=== PATIENT | female | born 1980 | race Caucasian/White ===

== ENCOUNTER 2017-02-08 16:26 | Emergency (ER) | payer OTHER ==
[~2017-02-08] VITALS: Ht 154.9 cm; Wt 43.3 kg
[~2017-02-08 16:26] MED LIST: ASPIR-TRIN325 M1 PO; CELEBREX200 MG PO; CYMBALTA30 MG PO; DULCOLAX5 MG PO; Ecotrin PO; FIORICET,ESG1 TABLET PO; Flexeril PO; NAPROSYN500 MG PO; NOHOMEMEDS; Pepcid PO; Senokot,Sennagen PO; VALIUM5 MG PO; VENLAFAXINE HCL75 M1 PO; Vicodin,Lortab 5/500 PO; ZOFRAN4 MG PO
[2017-02-08] MEDS ORDERED: ROBITUSSIN AC,T10 ML PO (19:16)
[2017-02-08] MEDS ORDERED: MOTRIN800 MG PO (19:16)
[2017-02-08 19:33] VITALS: BP 121/90
== END 2017-02-08 19:34 | disposition home or self-care (01) ==
LOC: EME 16:26
DX: M79.1 Myalgia (principal); R50.9 Fever, unspecified; R05 Cough; R53.81 Other malaise
CPT/HCPCS: 71020; 99281; 99284

== ENCOUNTER 2017-02-14 13:18 | Inpatient (IN) | payer OTHER ==
[~2017-02-14] VITALS: Ht 154.9 cm; Wt 45.7 kg
[~2017-02-14 13:18] MED LIST changes: +MOTRIN800 MG PO; +ROBITUSSIN AC,T10 ML PO
[2017-02-14 14:13] LABS: HEMATOCRIT 39.2 % (36.0-46.0); MCH 30.2 PG (29.0-34.0); MCHC 33.9 G/DL (30.0-36.0); MCV 89.1 FL (83-99); MEAN PLAT.VOLUME 11.5 uM^3 (9.5-12.4); PLATELET COUNT 413 K/uL (156-360); RBC DIS.WIDTH-CV 12.7 % (11.8-14.6); RBC DIS.WIDTH-SD 41.8 % (39-53); WHITE BLOOD COUNT 22.2 K/uL (4.1-10.2)
[2017-02-14 14:21] LABS: CHLORIDE 106 mEq/L (99-109); POTASSIUM 3.3 mEq/L (3.7-5.4); SODIUM 139 mEq/L (136-147)
[2017-02-14 14:23] LABS: GLUCOSE 124 mg/dL (70-99)
[2017-02-14 14:24] LABS: ANION GAP 13 MEQ/L (2-14)
[2017-02-14 14:25] LABS: TOTAL BILIRUBIN 0.8 mg/dL (0.0-1.0)
[2017-02-14 14:26] LABS: ALKALINE PHOSPHATASE 81 IU/L (3-129)
[2017-02-14 14:27] LABS: GFR ESTIMATE (CALCULATED) > 59 mL/min/
[2017-02-14 14:28] LABS: UREA NITROGEN (BUN) 6 mg/dL (9-23)
[2017-02-14 14:49] LABS: ADD MIUA? YES; BILIRUBIN NEGATIVE; BLOOD SMALL; COLOR YELLOW ((YELLOW)); GLUCOSE (STRIP) NEGATIVE; KETONES NEGATIVE; LEUKOCYTES TRACE; NITRITE NEGATIVE; PROTEIN (STRIP) NEGATIVE; UROBILINOGEN 0.2 MG/DL (0.2-1.0)
[2017-02-14 14:53] LABS: BACTERIA RARE /HPF; EPITHELIAL CELLS RARE /HPF; HYALINE CASTS 0-5 /LPF; MUCUS TRACE /LPF; WHITE BLOOD CELLS 0-5 /HPF (0-5)
[2017-02-14 16:10] VITALS: BP 101/64
[2017-02-14 18:18] LABS: PLAT.SUFFICIENCY ADEQUATE
[2017-02-14 18:20] LABS: AMPHETAMINES QUANT VALUE 0 NG/ML; BARBITUATES QUANT VALUE 0 NG/ML; BENZODIAZEPINES QUANT VALUE 0 NG/ML; BENZODIAZEPINES, URINE SCREEN Negative (200 ng/mL); OPIATES QUANTITATIVE VALUE 0 NG/ML; PHENCYCLIDINE QUANT VALUE 0 NG/ML
[2017-02-14 20:30] LABS: INFLUENZA A VIRAL ANTIGEN NEGATIVE; INFLUENZA B VIRAL ANTIGEN POSITIVE
[2017-02-14 21:28] VITALS: BP 100/62
[2017-02-14 23:37] VITALS: BP 115/68
[2017-02-15 02:39] LABS: CHLORIDE 113 mEq/L (99-109); SODIUM 141 mEq/L (136-147)
[2017-02-15 02:41] LABS: GLUCOSE 105 mg/dL (70-99)
[2017-02-15 02:42] LABS: ANION GAP 7 MEQ/L (2-14)
[2017-02-15 02:44] LABS: GFR ESTIMATE (CALCULATED) > 59 mL/min/
[2017-02-15 02:45] LABS: UREA NITROGEN (BUN) 6 mg/dL (9-23)
[2017-02-15 02:46] LABS: HEMATOCRIT 35.1 % (36.0-46.0); MCH 30.9 PG (29.0-34.0); MCHC 33.6 G/DL (30.0-36.0); MCV 91.9 FL (83-99); MEAN PLAT.VOLUME 11.3 uM^3 (9.5-12.4); PLATELET COUNT 366 K/uL (156-360); RBC DIS.WIDTH-CV 13.1 % (11.8-14.6); RED BLOOD COUNT 3.82 M/uL (3.80-5.20); WHITE BLOOD COUNT 18.7 K/uL (4.1-10.2)
[2017-02-15 02:56] LABS: POTASSIUM 4.4 mEq/L (3.7-5.4)
[2017-02-15 03:43] VITALS: BP 96/52
[2017-02-15 07:30] VITALS: BP 96/68
[2017-02-15 10:36] LABS: INTERNAL CONTROL VALID? YES
[2017-02-15 15:41] VITALS: BP 116/52
[2017-02-16 00:06] VITALS: BP 112/69
[2017-02-16 04:00] VITALS: BP 122/78
[2017-02-16 05:56] LABS: HEMATOCRIT 34.6 % (36.0-46.0); MCH 30.2 PG (29.0-34.0); MCHC 32.9 G/DL (30.0-36.0); MCV 91.8 FL (83-99); MEAN PLAT.VOLUME 11.5 uM^3 (9.5-12.4); PLATELET COUNT 446 K/uL (156-360); RBC DIS.WIDTH-CV 13.2 % (11.8-14.6); RBC DIS.WIDTH-SD 44.7 % (39-53); RED BLOOD COUNT 3.77 M/uL (3.80-5.20); WHITE BLOOD COUNT 18.8 K/uL (4.1-10.2)
[2017-02-16 06:49] LABS: ANION GAP 8 MEQ/L (2-14); CHLORIDE 107 MEQ/L (99-109); GFR ESTIMATE (CALCULATED) > 59 mL/min/; GLUCOSE 151 mg/dL (70-99); MAGNESIUM 1.9 mg/dl (1.3-2.7); SAMPLE HEMOLYSIS CHECK 0; SAMPLE ICTERIC CHECK 0; SAMPLE LIPEMIA CHECK 0; SODIUM 137 MEQ/L (136-147); UREA NITROGEN (BUN) 5 mg/dL (9-23)
[2017-02-16 08:32] VITALS: BP 88/60
[2017-02-16 10:39] VITALS: BP 94/52
[2017-02-16 12:26] VITALS: BP 101/56
[2017-02-16 20:15] VITALS: BP 121/69
[2017-02-17 00:15] VITALS: BP 107/55
[2017-02-17 05:14] VITALS: BP 96/57
[2017-02-17 06:04] LABS: HEMATOCRIT 32.5 % (36.0-46.0); MCH 30.2 PG (29.0-34.0); MCHC 32.6 G/DL (30.0-36.0); MCV 92.6 FL (83-99); MEAN PLAT.VOLUME 11.5 uM^3 (9.5-12.4); PLATELET COUNT 496 K/uL (156-360); RBC DIS.WIDTH-CV 13.3 % (11.8-14.6); RBC DIS.WIDTH-SD 45.4 % (39-53); RED BLOOD COUNT 3.51 M/uL (3.80-5.20); WHITE BLOOD COUNT 23.7 K/uL (4.1-10.2)
[2017-02-17 06:29] LABS: ANION GAP 9 MEQ/L (2-14); CHLORIDE 111 MEQ/L (99-109); GFR ESTIMATE (CALCULATED) > 59 mL/min/; GLUCOSE 117 mg/dL (70-99); POTASSIUM 3.7 MEQ/L (3.7-5.4); SAMPLE HEMOLYSIS CHECK 0; SAMPLE ICTERIC CHECK 0; SAMPLE LIPEMIA CHECK 0; SODIUM 142 MEQ/L (136-147); UREA NITROGEN (BUN) 8 mg/dL (9-23)
[2017-02-17 07:23] VITALS: BP 92/50
[2017-02-17 11:03] VITALS: BP 93/50
[2017-02-17 16:00] VITALS: BP 96/55
[2017-02-17 23:10] VITALS: BP 110/59
[2017-02-18 06:43] LABS: ANION GAP 6 MEQ/L (2-14); CHLORIDE 112 MEQ/L (99-109); GFR ESTIMATE (CALCULATED) > 59 mL/min/; GLUCOSE 103 mg/dL (70-99); POTASSIUM 3.8 MEQ/L (3.7-5.4); SAMPLE HEMOLYSIS CHECK 0; SAMPLE ICTERIC CHECK 0; SAMPLE LIPEMIA CHECK 0; SODIUM 143 MEQ/L (136-147); UREA NITROGEN (BUN) 10 mg/dL (9-23)
[2017-02-18 06:52] LABS: EOSINOPHIL (%) 0.1 % (0-5); IMMATURE GRANULOCYTE (%) 0.8 % (0.0-0.7); IMMATURE GRANULOCYTE COUNT 0.1 K/uL; INSTRUMENT ABS NEUTROPHIL CT 13.2 K/uL; LYMPHOCYTE COUNT 2.5 K/uL (1.0-2.8); MCH 30.5 PG (29.0-34.0); MCHC 32.7 G/DL (30.0-36.0); MCV 93.5 FL (83-99); MEAN PLAT.VOLUME 11.6 uM^3 (9.5-12.4); MONOCYTE (%) 4.4 % (3-12); MONOCYTE COUNT 0.7 K/uL (0-0.8); NEUTROPHIL (%) 79.7 % (45-76); NEUTROPHIL COUNT 13.2 K/uL (1.8-6.4); PLATELET COUNT 458 K/uL (156-360); RBC DIS.WIDTH-CV 13.6 % (11.8-14.6); RBC DIS.WIDTH-SD 46.5 % (39-53); RED BLOOD COUNT 3.21 M/uL (3.80-5.20); WHITE BLOOD COUNT 16.6 K/uL (4.1-10.2)
[2017-02-18 09:52] VITALS: BP 110/64
[2017-02-18 17:15] VITALS: BP 107/67
[2017-02-19 00:01] VITALS: BP 111/68
[2017-02-19 10:24] VITALS: BP 110/68
[2017-02-19] MEDS ORDERED: LEVOFLOXACIN750 MG PO (11:15)
== END 2017-02-19 12:32 | disposition home or self-care (01) | DRG 871 ==
LOC: EME 13:18 → 3EAST 15:03 → 4EAST 15:03 → EDOF 15:03 → 2EAST 16:07 → 3EAST 20:55 → 4EAST 02-16 12:12 → 5EAST 02-17 18:20
PROVIDERS: Hospitalist; Internal Medicine Infectious Disease; Nurse Practitioner Family; Student in an Organized Health Care Education/Training Program
DX: A41.9 Sepsis, unspecified organism (principal); J18.9 Pneumonia, unspecified organism; J10.00 Influenza due to other identified influenza virus with unspecified type of pneumonia; Z68.1 Body mass index [BMI] 19.9 or less, adult; D72.829 Elevated white blood cell count, unspecified; E87.6 Hypokalemia; E86.0 Dehydration; F19.10 Other psychoactive substance abuse, uncomplicated; F32.9 Major depressive disorder, single episode, unspecified; R05 Cough
CPT/HCPCS: 71010; 71020; 71260; 80048; 80048 91; 80053; 80202; 80306 90; 81003; 83605; 83735; 84145 90; 85025; 85027; 86609 90; 87040; 87070; 87205; 87449; 87502; 93005; 94640; 94640 76; 99202; 99281; 99285; J0696; J1644; J1956; J2543; J2920; J3370; J7030; J7050; J7120

== ENCOUNTER 2017-07-21 16:24 | Emergency (ER) | payer OTHER ==
[~2017-07-21] VITALS: Ht 152.4 cm; Wt 47.9 kg
[~2017-07-21 16:24] MED LIST changes: +LEVOFLOXACIN750 MG PO
[2017-07-21 18:27] LABS: BASOPHIL COUNT 0.1 K/uL (0-0.1); EOSINOPHIL (%) 1.7 % (0-5); EOSINOPHIL COUNT 0.2 K/uL (0-0.3); HEMATOCRIT 41.9 % (36.0-46.0); IMMATURE GRANULOCYTE (%) 0.2 % (0.0-0.7); INSTRUMENT ABS NEUTROPHIL CT 6.6 K/uL; MCH 31.1 PG (29.0-34.0); MCHC 32.5 G/DL (30.0-36.0); MCV 95.9 FL (83-99); MEAN PLAT.VOLUME 11.3 uM^3 (9.5-12.4); MONOCYTE (%) 4.8 % (3-12); MONOCYTE COUNT 0.5 K/uL (0-0.8); NEUTROPHIL (%) 71.2 % (45-76); NEUTROPHIL COUNT 6.6 K/uL (1.8-6.4); PLATELET COUNT 311 K/uL (156-360); RBC DIS.WIDTH-CV 12.9 % (11.8-14.6); RBC DIS.WIDTH-SD 45.9 % (39-53); RED BLOOD COUNT 4.37 M/uL (3.80-5.20); WHITE BLOOD COUNT 9.3 K/uL (4.1-10.2)
[2017-07-21 19:00] LABS: CHLORIDE 107 mEq/L (99-109); POTASSIUM 4.5 mEq/L (3.7-5.4); SODIUM 138 mEq/L (136-147)
[2017-07-21 19:03] LABS: GLUCOSE 117 mg/dL (70-99)
[2017-07-21 19:04] LABS: ANION GAP 7 MEQ/L (2-14); TOTAL BILIRUBIN 0.2 mg/dL (0.0-1.0)
[2017-07-21 19:06] LABS: ALKALINE PHOSPHATASE 86 IU/L (3-129); GFR ESTIMATE (CALCULATED) > 59 mL/min/; SERUM ETHYL ALCOHOL < 10 mg/dL
[2017-07-21 19:07] LABS: UREA NITROGEN (BUN) 6 mg/dL (9-23)
[2017-07-21 19:18] LABS: QUANTITATIVE HCG < 4.0 MIU/ML
[2017-07-22 02:07] VITALS: BP 116/78
== END 2017-07-21 19:37 | disposition home or self-care (01) ==
LOC: EME 16:24
PROVIDERS: Emergency Medicine
DX: F33.1 Major depressive disorder, recurrent, moderate (principal); F15.20 Other stimulant dependence, uncomplicated; Z98.1 Arthrodesis status
CPT/HCPCS: 80053; 81003; 84702; 85025; 90839; 99281; 99283; G0480

== ENCOUNTER 2018-03-03 18:34 | Emergency (ER) | payer OTHER ==
[~2018-03-03] VITALS: Ht 154.9 cm; Wt 51.9 kg
[2018-03-03 19:25] LABS: HEMATOCRIT 40.4 % (36.0-46.0); HEMOGLOBIN 13.7 G/DL (11.9-15.5); MCH 31.7 PG (29.0-34.0); MCHC 33.9 G/DL (30.0-36.0); MCV 93.5 FL (83-99); PLATELET COUNT 360 K/uL (156-360); RBC DIS.WIDTH-CV 12.5 % (11.8-14.6); RBC DIS.WIDTH-SD 43.2 % (39-53); RED BLOOD COUNT 4.32 M/uL (3.80-5.20); WHITE BLOOD COUNT 12.4 K/uL (4.1-10.2)
[2018-03-03 19:43] LABS: CHLORIDE 105 mEq/L (99-109); POTASSIUM 4.8 mEq/L (3.7-5.4); SODIUM 139 mEq/L (136-147)
[2018-03-03 19:46] LABS: GLUCOSE 101 mg/dL (70-99)
[2018-03-03 19:49] LABS: CREATININE 0.8 mg/dL (0.6-1.3); GFR ESTIMATE (CALCULATED) > 59 mL/min/; UREA NITROGEN (BUN) 7 mg/dL (9-23)
[2018-03-03 20:04] LABS: QUANTITATIVE HCG < 4.0 MIU/ML
[2018-03-03 20:32] LABS: AMPHETAMINE NEGATIVE (500 ng/mL); BARBITURATES NEGATIVE (200 ng/mL); BENZODIAZEPINES NEGATIVE (150 ng/mL); BUPRENORPHINE NEGATIVE (10 ng/mL); COCAINE NEGATIVE (150 ng/mL); METHADONE NEGATIVE (200 ng/mL); METHAMPHETAMINE NEGATIVE (500 ng/mL); OPIATES (MORPHINE) NEGATIVE (100 ng/mL); OXYCODONE NEGATIVE (100 ng/mL); PHENCYCLIDINE NEGATIVE (25 ng/mL); PROPOXYPHENE NEGATIVE (300 ng/mL); THC CANNABINOIDS NEGATIVE (50 ng/mL); TRICYCLIC ANTIDEPRESSANTS NEGATIVE (300 ng/mL)
[2018-03-04 00:17] VITALS: BP 120/89
[2018-03-07] MEDS ORDERED: HYDROCODON-ACE1 EAC7 PO (12:59)
[2018-03-07] MEDS ORDERED: EFFEXOR XR150 MG PO (13:00)
[2018-03-07] MEDS ORDERED: BUSPAR10 MG PO (13:00)
[2018-03-07] MEDS ORDERED: SEROQUEL XR200 MG PO (13:00)
[2018-03-07] MEDS ORDERED: WELLBUTRIN XL300 MG PO (13:00)
== END 2018-03-04 00:17 | disposition home or self-care (01) ==
LOC: EME 18:34
PROVIDERS: Physician Assistant
DX: M50.221 Other cervical disc displacement at C4-C5 level (principal); M48.02 Spinal stenosis, cervical region; M54.12 Radiculopathy, cervical region; G89.29 Other chronic pain; Z98.1 Arthrodesis status
CPT/HCPCS: 71046; 72125; 72141; 80048; 84702; 85027; 93005; 94640; 99281; 99285; J1100; J3010

== ENCOUNTER 2018-03-08 14:00 | Day surgery (SDC) | payer OTHER ==
[~2018-03-08] VITALS: Ht 154.9 cm; Wt 51.9 kg
[~2018-03-08 14:00] MED LIST changes: +BUSPAR10 MG PO; +EFFEXOR XR150 MG PO; +HYDROCODON-ACE1 EAC7 PO; +SEROQUEL XR200 MG PO; +WELLBUTRIN XL300 MG PO
[2018-03-08 14:27] VITALS: BP 112/71
[2018-03-08 14:47] LABS: HEMATOCRIT 43.7 % (36.0-46.0); HEMOGLOBIN 14.1 G/DL (11.9-15.5); MCH 30.6 PG (29.0-34.0); MCHC 32.3 G/DL (30.0-36.0); MCV 94.8 FL (83-99); PLATELET COUNT 342 K/uL (156-360); RBC DIS.WIDTH-CV 12.3 % (11.8-14.6); RBC DIS.WIDTH-SD 42.5 % (39-53); RED BLOOD COUNT 4.61 M/uL (3.80-5.20); WHITE BLOOD COUNT 9.5 K/uL (4.1-10.2)
[2018-03-08 15:12] LABS: CHLORIDE 98 MEQ/L (99-109); CREATININE 0.7 MG/DL (0.6-1.3); GFR ESTIMATE (CALCULATED) > 59 mL/min/; GLUCOSE 90 mg/dL (70-99); SODIUM 134 MEQ/L (136-147); UREA NITROGEN (BUN) 10 mg/dL (9-23)
[2018-03-08 15:14] LABS: POTASSIUM 3.8 MEQ/L (3.7-5.4)
[2018-03-08 21:44] VITALS: BP 115/71
== END 2018-03-09 00:19 | disposition home or self-care (01) ==
LOC: SDC 14:00 → ENRESERV 19:57 → 2SOUTH 19:58 → ENRESERV 20:02 → 2EAST 21:41
PROVIDERS: Neurological Surgery
DX: M50.021 Cervical disc disorder at C4-C5 level with myelopathy (principal)
CPT/HCPCS: 72020; 76000; 80048; 85027; C1713; C1821; G0378; J0690; J1100; J1170; J1885; J2250; J2405; J2710; J3010; J7643; Q0175; S0020